=== PATIENT | female | born 1975 | race Caucasian/White ===

== ENCOUNTER → 2018-08-05 12:13 | Outpatient (CLI) | payer BC, SELFPAY ==
--- NOTE | 2018-08-05 12:17 | RAD_ITS ---
STUDY: X-RAY - LUMBAR SPINE REASON FOR EXAM: Female, 43 years old. Back pain, recently been found to have something and felt a pop TECHNIQUE: 5 view(s) of the lumbar spine were obtained. COMPARISON: None FINDINGS: Normal lumbar lordosis. There is no substantial scoliosis. There is a normal alignment of the vertebrae. Mild spondylosis at lower lumbar levels. Disc space narrowing at L4-L5 and L5-S1. There is no demonstrated fracture. There is no demonstrated spondylolysis of the pars interarticulares. The soft tissue structures are unremarkable. RAD/L/S Spine Min 4 Views IMPRESSION: 1. Degenerative disc disease L4-L5 and L5-S1. No compression fracture. Electronically Signed: Carlos Faith MD at 20:53 EDT , Service support ,
== END ==
PROVIDERS: Family Provider Family Medicine; PCP Family Medicine; Visit Provider Family Medicine
DX: M54.9 Dorsalgia, unspecified (principal)
CPT/HCPCS: 72110

== ENCOUNTER → 2019-11-19 16:02 | Outpatient (CLI) | payer BC, SELFPAY ==
[2019-11-19 09:04] VITALS: BMI 33.4
[2019-11-19 16:05] LABS: Mucous, Urine 0 SEEN /hpf (<or=2+); Red Blood Cells-Urine 0 SEEN /hpf (0-5)
[2019-11-19 16:38] LABS: Color, Urine Yellow (Yellow); Glucose, Dipstick Normal (Normal); Ketone-Dipstick Negative (Negative); Leukocyte Esterase-Dipstick 500 /ul (Negative); Nitrite-Dipstick Negative (Negative); Occult Blood-Urine 10 /ul (Negative); Protein-Dipstick Negative (Negative); Urine Bilirubin Dipstick Negative (Negative); Urine Clarity Sl. Cloudy (Clear); Urine Urobilinogen Normal (Normal)
[2019-11-19 17:08] LABS: Bacteria 2+ /hpf (None Seen); Squamous Epithelial Cells - UA 0-5 SEEN /hpf (5-10); White Blood Cells 10-25 SEEN /hpf (0-5)
== END ==
PROVIDERS: Family Provider Family Medicine; PCP Family Medicine; Referring Provider Physician Assistant Medical; Visit Provider Physician Assistant Medical
DX: M54.5 Low back pain (principal)
CPT/HCPCS: 81001; 87086; 87088

== ENCOUNTER → 2020-12-12 16:23 | Outpatient (CLI) | payer BC, SELFPAY ==
[2019-11-19 09:04] VITALS: BMI 33.4
--- NOTE | 2020-12-12 16:27 | RAD_ITS ---
STUDY: X-RAY - LUMBAR SPINE REASON FOR EXAM: Female, 45 years old. INTERMITTENT BACK PAIN, GETTING INCREASINGLY WORSE RECENTLY TECHNIQUE: 5 view(s) of the lumbar spine were obtained including oblique views. COMPARISON: None FINDINGS: Normal lumbar lordosis. There is no substantial scoliosis. There is a normal alignment of the vertebrae. Disc space narrowing and mild spondylosis at the L4-L5 and L5-S1 levels. The soft tissue structures are unremarkable. RAD/L/S Spine Min 4 Views IMPRESSION: Disc space narrowing and mild spondylosis at the L4-L5 and L5-S1 levels. Electronically Signed: Bear Lyon MD at 11:04 EST , Service support ,
== END ==
LOC: MTRAD 16:26
PROVIDERS: PCP Family Medicine; Referring Provider Family Medicine; Visit Provider Family Medicine
DX: M54.5 Low back pain (principal)
CPT/HCPCS: 72110

== ENCOUNTER → 2021-04-03 06:17 | Outpatient (CLI) | payer BC, SELFPAY ==
[2019-11-19 09:04] VITALS: BMI 33.4
--- NOTE | 2021-04-03 15:23 | NEURO ---
NCS and/or EMG Patient Report Ordering Doctor: Lang Galindo DATE OF SERVICE: 04/03/21 Jamee presents for electrodiagnostic testing of the lower limbs. She reports numbness, tingling and burning in the legs, more prominent on the right side. She has a history of back surgery in 2013. Electrodiagnostic findings: peroneal motor nerve demonstrates normal distal latency, amplitude and conduction velocity bilaterally. Normal tibial motor response bilaterally. Normal tibial and peroneal F waves. H reflex is within normal limits. Sensory responses are normal. On needle EMG, all muscles tested in the lower limbs, as well as lumbar paraspinals, showed no evidence of denervation with normal motor unit action potentials. Electrodiagnostic assessment: This is a normal electrodiagnostic study in the lower limbs. There is no electrodiagnostic evidence for lumbosacral radiculopathy or peripheral neuropathy.
== END ==
LOC: PSN 06:18
PROVIDERS: PCP Family Medicine; Referring Provider Orthopaedic Surgery; Visit Provider Orthopaedic Surgery
DX: M47.26 Other spondylosis with radiculopathy, lumbar region (principal)
CPT/HCPCS: 95886; 95911

== ENCOUNTER → 2021-10-30 10:33 | Outpatient (CLI) | payer BC, SELFPAY ==
[2021-10-30 14:02] LABS: Probe Check PASS; Specimen Processing Control PASS
== END ==
PROVIDERS: PCP Family Medicine; Referring Provider Internal Medicine Cardiovascular Disease; Visit Provider Internal Medicine Cardiovascular Disease
DX: Z03.818 Encounter for observation for suspected exposure to other biological agents ruled out (principal)
CPT/HCPCS: 87635; U0005; U0003

== ENCOUNTER 2022-04-19 05:35 | Emergency (ER) | payer OTHER, SELFPAY ==
[2022-04-19 05:35] VITALS: BP 143/82; PULSE 88; RESP 18; TEMP 36.1; O2SAT 96; BMI 34.4
--- NOTE | 2022-04-19 05:54 | EX.ED.UPPERE ---
HPI History of Present Illness Chief Complaint: Upper Extremity Injury Informant: patient Onset/Context/Timing Onset: Yesterday Context: Gradual Onset Timing: Continuous Quality of Pain: Aching Location: MCPJs left hand Current Severity: Moderate Maximum Severity: Moderate Worsened by: making a fist/movement Relieved by: nothing Associated Symptoms Associated Symptoms: Positive for Parasthesia (fingers); Negative for Weakness and Loss of Funtion Narrative Narrative: Gradual onset swelling and pain mostly around the MCPJ's of the left hand. She is right-hand dominant. No recent injury or repetitive movements she can think of. No recent IV in this arm. No history of breast cancer or other systemic disease. No fevers or chills. No recent splinter/foreign body or break in the skin on her left hand that could be a nidus for infection. [facility] Medical History Back pain HTN (hypertension) Home Medications lisinopril 5 mg PO DAILY 07/02/17 [History Last Taken 04/19/22] gabapentin 100 mg capsule 100 mg PO BID 12/04/21 [History Last Taken 04/19/22] prednisone 40 mg PO DAILY #12 tablet 04/19/22 [Rx Last Taken Unknown] Allergy/AdvReac Type Severity Reaction Status Date / Time erythromycin base Allergy Hives Verified 12/04/21 09:01 Surgical History History of back surgery History of discectomy History of knee surgery History of laminectomy History of tubal ligation Social History Smoking Status: Never smoker alcohol intake: current alcohol intake frequency: a few times a month Alcohol type: wine ROS ROS ED Constitutional Constitutional ED: Denies chills or fever(s) Musculoskeletal Musculoskeletal: Reports extremity pain; Denies neck pain Integumentary Denies Abrasions, rash or wounds Neurologic Neurologic: Reports paresthesias; Denies weakness EXAM Physical Exam Const Vital Signs: 04/19/22 05:35 Temperature 96.9 F L Temperature Source Temporal Pulse Rate 88 Respiratory Rate 18 Blood Pressure 143/82 H Blood Pressure Mean 102 Pulse Ox 96 Oxygen Delivery Method Room Air Positive well nourished and well developed General Appearance ED: well developed and NAD Neck full ROM and supple Lymph Lymphatic Narrative: No left epitrochlear lymphadenopathy. No left axillary lymphadenopathy. Back/Spine normal ROM and normal to inspection Extremity full ROM Extremity Narrative: Able to make a fist with her left hand and move all fingers/tendons without difficulty. No bony tenderness. Some mild tenderness in the soft tissues of the dorsum of the left hand MCPJ's, mostly near and around the index finger joint. No fluctuance or erythema or abscess. Patient notices warmth which I cannot objectively appreciate to the degree that she can. Full range of motion wrist, elbow, shoulder without difficulty. Neuro oriented x3 and no focal motor deficits Neuro Narrative: Subjective decrease sensation fingers 2-5 left hand. Brisk cap refill. Strong pulses 2+/4 radial. Sensorium / Orientation: alert Psych mental status grossly normal and thought process normal Skin no wounds Rashes: no rashes MDM MDM MDM Narrative Medical decision making narrative: I do not see anything here that looks like an infection. She has swelling along with painful movements of the MCP J's, the cause is unknown and I do not think doing tasks will necessarily help to elucidate the cause, and I do not think any tests are necessary to rule out an emergency here. This seems to be something inflammatory rather than infectious so I think putting her on a short course of prednisone is reasonable. She was advised that if this makes it worse to stop it and either follow-up or return to the ER, especially if she sees signs of infection which we discussed. Discharge Plan Triage Chief Complaint: Upper Extremity Injury ED Provider: Дмитрий Salas Dx/Rx/DC Orders Clinical Impression: Arthritis of hand, left Instructions: ED Arthralgia Prescriptions: New prednisone 20 MG tablet 40 mg PO DAILY Qty: 12 RF: 0 No Action gabapentin 100 mg capsule 100 mg PO BID RF: 0 lisinopril 5 MG tablet 5 mg PO DAILY RF: 0 Primary Care Provider: Enmanuel De Santiago Referrals: Enmanuel De Santiago MD [Primary Care Provider] - 3-5 Days if not improving Disposition Disposition: Home, Self Care Discharge Date/Time: 04/19/22 06:00
[2022-04-19 05:58] VITALS: BP 135/78; PULSE 80; RESP 18; O2SAT 96
[2022-04-19] MEDS: predniSONE 20 MG Tablet 40 MG PO (05:59)
== END 2022-04-19 06:00 | disposition home or self-care (01) ==
LOC: ED 06:00
PROVIDERS: Emergency Provider Emergency Medicine; PCP Family Medicine; Visit Provider Emergency Medicine
DX: M19.042 Primary osteoarthritis, left hand (principal); I10 Essential (primary) hypertension; Z79.899 Other long term (current) drug therapy
CPT/HCPCS: 99283

== ENCOUNTER → 2022-08-14 | Outpatient (CLI) | payer OTHER, SELFPAY ==
[2022-08-14 14:10] LABS: Anion Gap 6 (5-15); BUN 12 mg/dL (7-18); BUN/Creat Ratio 17.2 RATIO (10-20); Calcium,Total 9.4 mg/dL (8.5-10.1); Chloride 108 mmol/L (98-107); Cholesterol 195 mg/dL (200); EST Glomerular Filtration Rate 96 mL/min (>60); Est Glom Filt Rate - Afr Amer 116 mL/min (>60); Glucose 104 mg/dL (74-106); High Density Lipoprotein 45 mg/dL; Potassium 3.9 mmol/L (3.5-5.1); Sodium Level 140 mmol/L (136-145); Thyroid Stim Hormone (TSH) 2.54 uIU/mL (0.358-3.74); Triglycerides 106 mg/dL; Very Low Density Lipoprotein 21 mg/dL (5-40)
== END | disposition home or self-care (01) ==
LOC: MFPLAB 08:42
PROVIDERS: PCP Family Medicine; Referring Provider Family Medicine; Visit Provider Family Medicine
DX: Z00.00 Encounter for general adult medical examination without abnormal findings (principal)
CPT/HCPCS: 36415; 80048; 80061; 84443

== ENCOUNTER → 2022-12-29 | Outpatient (CLI) | payer OTHER, SELFPAY ==
--- NOTE | 2022-12-29 17:12 | RAD_ITS ---
EXAM: XR RIGHT ELBOW COMPLETE, 3 OR MORE VIEWS CLINICAL INDICATION: PAIN TECHNIQUE: Frontal, lateral and oblique views of the right elbow. This report was created using [employer] report generation technology. COMPARISON: None. FINDINGS: BONES/JOINTS: Unremarkable. There is no displacement of the anterior or posterior fat pads. No acute fracture. No subluxation. Normal alignment. Preservation of the joint space. No destructive or sclerotic lesions. SOFT TISSUES: Unremarkable. No soft tissue swelling or gas. No radiopaque foreign body. RAD/Elbow min 3 Views IMPRESSION: Negative right elbow. Electronically Signed: Yakov Wing MD at 23:33 EST ,
== END | disposition home or self-care (01) ==
LOC: MTRAD 17:11
PROVIDERS: PCP Family Medicine; Referring Provider Family Medicine; Visit Provider Family Medicine
DX: M25.521 Pain in right elbow (principal); M25.522 Pain in left elbow
CPT/HCPCS: 73080

== ENCOUNTER → 2022-12-30 | Outpatient (CLI) | payer OTHER, SELFPAY ==
[2022-12-30 12:27] LABS: Absolute Lymphocyte Count 2.13 X10^3/uL (0.83-4.51); Absolute Neutrophil Count 3.5 X10^3/uL (2.0-7.7); Basophil# 0.07 X10^3/uL; Eosinophil# 0.24 X10^3/uL; Eosinophils% 3.6 % (0-5); Hematocrit 40.1 % (37-47); Hemoglobin 13.5 g/dL (12.0-15.0); Lymphocyte # 2.13 X10^3/ul (0.83-4.51); Lymphocyte % 31.8 % (19-41); Mean Corp Hgb Conc 33.7 g/dL (32-36); Mean Corpuscular Hgb 30.5 pg (27.0-32.0); Mean Corpuscular Volume 90.7 fL (81-99); Mean Platelet Vol. 10.3 fl (6.2-12.0); Monocyte# 0.71 X10^3/uL; Monocyte% 10.6 % (0-10); NRBC Flagged by Analyzer 0 % (0-5); Neutrophil # 3.53 X10^3/uL (2.7-7.7); Neutrophil % 52.9 % (47-70); Platelet Count 302 K/mm3 (150-450); RBC Distribution Width CV 11.7 % (11.6-14.6); RBC Distribution Width SD 38.5 fl (35.1-43.9); Red Blood Count 4.42 M/mm3 (4.2-5.4); White Blood Count 6.7 K/mm3 (4.4-11.0)
[2022-12-30 12:29] LABS: Erythrocyte Sedimentation Rate 11 mm/hr (0-30)
[2022-12-30 12:47] LABS: CRP < 2.90 mg/L (0.0-3.0)
[2023-01-02 19:04] LABS: ANTINUCLEAR ANTIBODIES DIRECT Negative (Negative)
== END | disposition home or self-care (01) ==
LOC: MFPLAB 10:40
PROVIDERS: PCP Family Medicine; Visit Provider Family Medicine
DX: M25.521 Pain in right elbow (principal)
CPT/HCPCS: 36415; 85025; 85652; 86038; 86140

== ENCOUNTER 2023-01-08 09:49 | Outpatient (RCR) | payer OTHER, SELFPAY ==
--- NOTE | 2023-01-08 14:52 | HP.PTEVAL_ITS ---
Patient's Visit Information ROMY LIANG is a 47 year old F referred to Physical Therapy by Dr. Stefan Celeste MD with a diagnosis of Bilateral Elbow Pain. Date of Evaluation: 01/08/23 Physical Therapist: Enedina Hull DPT - Visit Plan Frequency: 2x /Week Duration: 4 Weeks Plan: Return to MD for further evaluation of possible cervical spine involvement. Will follow up with PT after re-evaluation by PT - Subjective Patient reports bilateral elbow pain since June- she saw the MD in August- she put her on anti-inflam which did not help. The pain is along the medial elbow- the pain is always there its just sometimes worse than others. She is already on gabapentin for her back- and has a PT referral for that too. She is contently moving her elbows. 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 Eases: nothing- she has tried multiple braces- she has not had any x-rays of her cervical spine. She has had tests for RA and those all came back negative. Pain does radiate to her shoulder and she does have some N/T in her hands bilateral. She likes to read a book at night and she has pain in the elbows. Worst: 10/10 which was Thursday night- she did nothing out of the ordinary- both the same- if she is a 10/10 in one its in both. Her neck is just really stiff and she gets FORBES- every day she wakes up with one. Sleep: disturbed- she is up 2- 3x a night for restroom and pain. She is a back/side sleeper- she has an ortho bed which she does zero gravity- she is using a memory foam gel pillow. She has DDD in her lumbar spine, spinal stenosis L1-L5. She has surgery in 2013- left LE nerve damage. She has had a recent MRI- [facility] (Dr. Cifuentes). Decreased rivet spinner strength. Right hand dominate. PMHx: back surgery, tubal ligation, artho knee surgery, appendectomy Meds: Lisinopril and Gabapentin - Objective Posture: FH, RS- can correct but does not maintain. Gait: no deviation noted. Palpation: tender along cervical spine paraspinals, infraspinatus, medial border of the scapula, upper trap to the AC joint, and medial epicondyle. ROM: Cervical: WFL but does have radiating s/s with cervical flexion- increased N/T in bilateral UE and elbow pain. Coming back to neutral all neuro signs abolish. UE: WFL in all planes. Strength: Scap: poor, Shoulder: 4/5, Elbow: 4/5 with pain, Wrist: 4/5 with pain, Benefits Coordinator: Left: 40/60 Right: 60/70. Sensation: WNL to gross touch bilateral. Special Test: neural tension: positive with radial, medial and ulnar with increased pain down bilateral UE and elbow pain. - Special Tests C/S Radiculapathy - Left Upper limb tension test: Positive C/S Radiculapathy - Right Upper limb tension test: Positive C/S Radiculapathy - Left Spurlings: Positive C/S Radiculapathy - Right Spurlings: Positive - Balance/Special Test Scores Quick DASH Score: 36.3625 - Goals Goal 1:: Patient will be I with HEP and progression Goal Time Frame: 4-6 Weeks - Rehabilitation Potential Physical Therapy Diagnosis: Patient presents with bilateral elbow pain that is exacerbated by neural tension tests and cervical flexion. - Anticipated Interventions Patient/Client Instruction: Educate patient on: Benefits of Fitness Program Therapeutic Exercise to Include: Strength training, Body mechanics, Postural training, Flexibilty training, Gait and locomotor training, Neuromotor development, Passive ROM, Active ROM, Dynamic Lumbar Stabilization, Scapular Strength/Stabilization For the Purpose of:: To improve muscle performance and motor function TENS: Yes Cryotherapy (ice pack, ice massage): Yes Thermo therapy (hot pack): Yes Ultrasound (thermal/non thermal): Yes Thank you for the opportunity to evaluate your patient. For Medicare and Medicare HMO plans, please review the plan of care and approve it. It will need to be FAXED BACK to us at [phone] for Medicare purposes. For Medicare only, by signing this I certify the plan of care. Please let me know if there are questions or concerns regarding this plan of care. Physician Signature: Date:
--- NOTE | 2023-02-09 08:11 | HP.PTDCSUM ---
It has been my pleasure to treat ROMY LIANG referred by Dr. Stefan Celeste MD, with the diagnosis of Bilateral Elbow Pain for a total of 1 visit(s). Discharge Date: Please see the following information for a summary of their discharge status. Goal 1:: Patient will be I with HEP and progression Plan: Return to MD for further evaluation of possible cervical spine involvement. Will follow up with PT after re-evaluation by PT If there are questions or concerns regarding this patient's physical therapy, please feel free to call me at [phone]. Thank you for the referral of this patient. Sincerely, Enedina Hull, BENT Balance/Gait/Functional tests - Balance/Special Test Scores Quick DASH Score: 36.3626
== END 2023-01-08 19:00 | disposition home or self-care (01) ==
LOC: PT 09:49
PROVIDERS: PCP Family Medicine; Referring Provider Family Medicine; Visit Provider Family Medicine
DX: M25.521 Pain in right elbow (principal); M25.522 Pain in left elbow
CPT/HCPCS: 97162

== ENCOUNTER 2023-10-05 07:46 | Emergency (ER) | payer OTHER, SELFPAY ==
[2023-10-05 07:47] VITALS: BP 158/91; PULSE 86; RESP 15; TEMP 36; O2SAT 100; BMI 32.3
--- NOTE | 2023-10-05 08:20 | EDS_ITS ---
HPI History of Present Illness Chief Complaint: Dizziness Narrative Narrative: 48-year-old female presenting with dizziness/lightheadedness. She states it started last evening and went away. Patient states she does take lisinopril for high blood pressure and notes her blood pressures have not been significantly high. Patient states her symptoms went away last evening but returned this morning when she was at work. She describes it as vertiginous when she closes her eyes. When she walks she feels a little off balance. She feels like she has tingling around her lips. No history of vertigo. No headache. No visual complaints. No numbness or tingling elsewhere. Patient able to ambulate although she feels unsteady was able to make it into the emergency room steady gait. [facility] Medical History Back pain HTN (hypertension) Home Medications lisinopril 5 mg tablet 5 mg PO DAILY blood pressure 07/02/17 [History Last Taken 04/19/22] gabapentin 100 mg capsule 100 mg PO BID 12/04/21 [History Last Taken 04/19/22] prednisone 20 mg tablet 40 mg (2 x 20 mg) PO DAILY #12 TABLETS 04/19/22 [Rx Last Taken Unknown] cyclobenzaprine 10 mg tablet 10 mg PO TID PRN Muscle Spasm #20 TABLETS 10/05/23 [Rx Last Taken Unknown] meclizine 25 mg tablet 25 mg PO TID PRN dizziness #30 tabs 10/05/23 [Rx Last Taken Unknown] Allergy/AdvReac Type Severity Reaction Status Date / Time erythromycin base Allergy Hives Verified 10/05/23 08:13 Surgical History History of back surgery History of discectomy History of knee surgery History of laminectomy History of tubal ligation Social History Smoking Status: Never smoker alcohol intake: current alcohol intake frequency: a few times a month Alcohol type: wine ROS ROS ED Constitutional Constitutional ED: Denies chills, fever(s) or sweats Eyes Eyes: Reports other Details: Vertiginous dizziness ; Denies blurry vision or change in vision ENT ENT ED: Denies ear pain or sore throat Cardiovascular Cardiovascular: Denies chest pain, palpitations or racing heartbeat Respiratory/Chest Respiratory/Chest: Denies cough, dyspnea or sputum Gastrointestinal Gastrointestinal: Denies abdominal pain, constipation, diarrhea, nausea or vomiting Genitourinary Genitourinary ED: Denies dysuria, hematuria or urinary frequency Musculoskeletal Musculoskeletal: Denies arthralgias, myalgias or neck pain Integumentary Denies abscess, Abrasions or rash Neurologic Neurologic: Denies headache(s), paresthesias or weakness Psychiatric Psychiatric: Denies anxiety, depression, suicidal ideation or suicidal thoughts Endocrine Endocrinology: Denies polydipsia or polyuria EXAM Physical Exam Const Vital Signs: 10/05/23 07:47 10/05/23 09:40 10/05/23 09:45 Temperature 96.8 F L Temperature Source Temporal Pulse Rate 86 79 Respiratory Rate 15 18 Respiratory Effort Normal Non-Labored Respiratory Pattern Normal Blood Pressure 158/91 H 136/87 H Blood Pressure Mean 113 103 Pulse Ox 100 99 Oxygen Delivery Method Room Air Room Air Positive well nourished General Appearance ED: NAD HEENT Reports moist mucous membranes Eyes PERRL and EOMs intact bilaterally Eyes Narrative: Nystagmus noted with [place]-Hallpike. Neck no lymphadenopathy Resp normal respiratory effort Cardio regular rate and regular rhythm Neuro oriented x3, CN's II-XII intact bilaterally and no sensory deficits noted Neuro Narrative: No focal neurologic deficits or lateralizing signs or symptoms Sensorium / Orientation: alert Psych mental status grossly normal Skin no rashes or lesions noted MDM MDM MDM Narrative Medical decision making narrative: Patient presenting with lightheaded/dizziness. She has reproducible dizziness on exam and has some nystagmus noted with [place]-Hallpike. Patient medicated with Phenergan and meclizine. On reevaluation she felt much better she was able to ambulate stable gait she sitting in a chair and is comfortable. She states her symptoms have resolved. She also states she is having some lumbar back pain which is not new. She states she is out of cyclobenzaprine and request a prescription for this. This was provided. Patient discharged home in stable condition. Impression: 1. Vertigo 2. Lumbar strain Discharge Plan Triage Chief Complaint: Dizziness ED Provider: Tyree Boyce Dx/Rx/DC Orders Instructions: ED Back Pain (Acute or Chronic), ED BPV Vertigo Prescriptions: New meclizine 25 mg tablet 25 mg PO TID PRN (Reason: dizziness) Qty: 30 0RF cyclobenzaprine 10 mg tablet 10 mg PO TID PRN (Reason: Muscle Spasm) Qty: 20 0RF No Action gabapentin 100 mg capsule 100 mg PO BID Hold Instructions: Pt has been DC'd Patient Comments: Take 1 Capsule by mouth two times daily lisinopril 5 MG tablet 5 mg PO DAILY prednisone 20 MG tablet 40 mg PO DAILY Qty: 12 0RF Hold Instructions: Pt has been DC'd Primary Care Provider: Enmanuel De Santiago Referrals: Dennis Brower MD [Med Staff - Active Staff] - 3-5 Days Enmanuel De Santiago MD [Primary Care Provider] - Disposition Disposition: Home, Self Care Discharge Date/Time: 10/05/23 10:22
[2023-10-05] MEDS: proMETHazine 25 MG/ML Syringe 12.5 MG IM (08:48)
[2023-10-05] MEDS: Meclizine HCl 25 MG Tablet PO (08:48)
[2023-10-05 09:45] VITALS: BP 136/87; PULSE 79; RESP 18; O2SAT 99
== END 2023-10-05 10:22 | disposition home or self-care (01) ==
PROVIDERS: Emergency Provider Student in an Organized Health Care Education/Training Program; PCP Family Medicine; Visit Provider Student in an Organized Health Care Education/Training Program
DX: R42 Dizziness and giddiness (principal); S39.012A Strain of muscle, fascia and tendon of lower back, initial encounter; X58.XXXA Exposure to other specified factors, initial encounter; I10 Essential (primary) hypertension; Z79.899 Other long term (current) drug therapy
CPT/HCPCS: 96372; 99282

== ENCOUNTER → 2023-12-04 | Outpatient (CLI) | payer OTHER, SELFPAY ==
[2023-12-04 15:58] LABS: Anion Gap 6 (5-15); BUN 11 mg/dL (7-18); BUN/Creat Ratio 15.3 RATIO (10-20); Calcium,Total 9.2 mg/dL (8.5-10.1); Chloride 109 mmol/L (98-107); Cholesterol 204 mg/dL (200); Creatinine, Serum 0.72 mg/dL (0.55-1.02); EST Glomerular Filtration Rate 92 mL/min (>60); Est Glom Filt Rate - Afr Amer 112 mL/min (>60); Glucose 87 mg/dL (74-106); High Density Lipoprotein 47 mg/dL; Potassium 3.6 mmol/L (3.5-5.1); Sodium Level 139 mmol/L (136-145); Triglycerides 116 mg/dL; Very Low Density Lipoprotein 23 mg/dL (5-40)
[2023-12-04 16:13] LABS: Vitamin D,25 Hydroxy 42.1 ng/mL
== END | disposition home or self-care (01) ==
LOC: MFPLAB 14:12
PROVIDERS: PCP Family Medicine; Visit Provider Family Medicine
DX: Z00.00 Encounter for general adult medical examination without abnormal findings (principal)
CPT/HCPCS: 36415; 80048; 80061; 82306

== ENCOUNTER 2024-03-03 08:57 | Day surgery (SDC) | payer OTHER, SELFPAY ==
[2024-03-03] VITALS (7 sets, daily range): BP systolic 115–132; BP diastolic 63–88; PULSE 57–72; RESP 16–18; TEMP 36.5–36.6; O2SAT 98–100; BMI 33.5
--- NOTE | 2024-03-03 | COLBX_PTH ---
PATIENT: ROMY LIANG LOC: EN U#:[id number] AGE/SX: 48/F ROOM: RE03/03/[address]: Dr. Sonido Guzman DO : 1975 BED: DIS: 03/03/2024 SPEC #: [id number] RECD: 03/03/24 12:50 STATUS: SANDEEP ONESIMO #: [id number] ARACELY: 03/03/24 00:[address]: Sonido Guzman DEPT: SURGICAL PATHOLOGY RECD BY: Aurelio Wharton ENTERED: 03/03/24 12:51 SP TYPE: COLON BX OTHR DR: Dr. Enmanuel De Santiago MD Tissues: COLON BIOPSY Procedures: Surgery Specimen Level IV HEADER OPERATION: Colonoscopy with polypectomy- open access PRE-OP DIAGNOSIS: Encounter for screening for malignant neoplasm of colon TISSUE SUBMITTED: Hepatic flexure polyp MICROSCOPIC DIAGNOSIS Colonic polyp at hepatic flexure, biopsy: Tubular adenoma. AM/mr 03/04/24 MICROSCOPIC DESCRIPTION Slides are reviewed. GROSS DESCRIPTION Received in fixative is one container labeled with the patient's name and designated Hepatic flexure polyp. The specimen consists of one irregular fragment of light garnett soft tissue that measures 0.3 x 0.3 x 0.1 cm. The specimen is totally submitted in one cassette. GAVI/ 03/03/2024 TC:5 CPT:04073
[2024-03-03] MEDS: Lactated Ringers 1,000 ML 15 ML IV (09:30)
--- NOTE | 2024-03-03 10:44 | PCM.HP.STD ---
[facility] - General General Date of Admission: 03/03/24 Date of Service: 03/03/24 Chief Complaint: Screening colonoscopy [facility] Narrative ROMY LIANG, is a 48 F who presents today for screening colonoscopy. She never had a colonoscopy in the past. Past medical history is only positive for vertigo and mild hypertension. She denies any chest pain, shortness of breath, vomiting or diarrhea. Overall she is in very good health. [facility] Medical History (Updated 02/29/24 @ 09:55 by Zaida Norton) Alcohol use Arthritis Back pain Heartburn HTN (hypertension) Non-smoker Vertigo Wears contact lenses Home Medications lisinopril 5 mg tablet 5 mg PO DAILY blood pressure 07/02/17 [History Last Taken 03/03/24 05:30] cyclobenzaprine 10 mg tablet 10 mg PO TID PRN Muscle Spasm #20 TABLETS 10/05/23 [Rx Last Taken Unknown] meclizine 25 mg tablet 25 mg PO TID PRN dizziness #30 tabs 10/05/23 [Rx Last Taken Unknown] multivitamin 1 tab PO DAILY 01/25/24 [History Last Taken 03/02/24] Allergy/AdvReac Type Severity Reaction Status Date / Time erythromycin base Allergy Hives Verified 03/03/24 09:34 Family History (Updated 01/25/24 @ 14:17 by Sammie Masterson) Uncle Colon cancer Father Colon polyps Surgical History (Updated 02/29/24 @ 09:55 by Zaida Norton) History of knee surgery History of laminectomy History of tubal ligation Social History (Updated 01/25/24 @ 14:17 by Sammie Masterson) household members: spouse current occupational status: employed Smoking Status: Never smoker alcohol intake: current alcohol intake frequency: a few times a month Alcohol type: wine substance use type: does not use ROS Review of Systems ROS Unobtainable: other Constitutional Constitutional: Denies fatigue, fever(s), poor appetite, weight gain or weight loss ENT HEENT: Denies mouth lesions Cardiovascular Cardiovascular: Denies abdominal bloating, abdominal edema or abdominal pain Respiratory/Chest Respiratory/Chest: Denies change in mental status, change in phlegm color, chest congestion or chest tightness Gastrointestinal Gastrointestinal: Denies belching, bloating, change in bowel habits, change in stool character, chewing difficulty, coffee ground emesis, constipation, cramping, diarrhea, dyspepsia, dysphagia, early satiety, excessive flatus, fecal incontinence, heartburn, hematemesis, hematochezia, hemorrhoids, loose stools, melena, nausea, odynophagia, rectal bleeding, tenesmus, vomiting or weight changes Genitourinary Genitourinary: Denies abdominal discomfort, burning urination or itching Musculoskeletal Musculoskeletal: Reports as per HPI; Denies muscle weakness or myalgias Integumentary Integumentary: Denies jaundice Neurologic Neurologic: Denies lack of coordination or weakness Psychiatric Psychiatric: Denies confusion, depression, memory loss, mood swings, paranoia or suicidal ideation Endocrine Endocrinology: Denies systems reviewed and no addt'l complaints, except as documented Hematologic/Lymphatic Hematologic/Lymphatic: Denies anemia, easy bleeding, easy bruising or lymphadenopathy Allergic/Immunologic Allergic/Immunologic: Denies systems reviewed and no addt'l complaints, except as documented Vital Signs Vital Signs Vital Signs: 03/03/24 09:35 03/03/24 09:35 Temperature 97.8 F Temperature Source Temporal Pulse Rate 69 Respiratory Rate 18 Respiratory Pattern Normal Blood Pressure 132/88 H Blood Pressure Mean 102 Blood Pressure Source Monitor Blood Pressure Position Sitting Blood Pressure Location Left Arm Pulse Ox 99 Oxygen Delivery Method Room Air Weight Weight: 233 lb 11.04 oz Body Mass Index (BMI) 33.5 Physical Exam Const alert General Appearance: cooperative Orientation / Consciousness: oriented to person HEENT hearing grossly normal bilaterally Head and Scalp: normal to inspection Face and Sinus: face symmetric Nose: external nose normal Mouth: oral and palatal mucosa normal Eyes conjunctivae normal General Eye: normal appearance of both eyes Neck full ROM General: normal visual inspection Lymph Lymphatic: no lymphadenopathy noted Chest inspection of chest normal and palpation of chest normal Chest: symmetrical chest wall rise Resp normal respiratory effort Effort and Inspection: able to speak in complete sentences Cardio regular rate GI non-distended Percussion: normal to percussion Rectal Exam: deferred Neuro Speech: speech normal Gait (Neuro): normal gait Assessment & Plan Assessment/Plan (1) Encounter for screening for malignant neoplasm of colon: PLAN: She was explained alternatives, benefits, risk including not withstanding bleeding, infection, sepsis, perforation, need for emergent surgery and . She will have an ASA of 2.
--- NOTE | 2024-03-03 11:12 | OP.CCLET_ITS ---
03/03/2024 Enmanuel De Santiago MD [address] [id number] Re : Colonoscopy procedure for Jamee Hernandez Dear Dr. De Santiago This procedure was performed on February. My impressions and recommendations are as follows: Impressions : - One 5 mm polyp at the hepatic flexure, removed with a jumbo cold forceps. Resected and retrieved. - Diverticulosis in the recto-sigmoid colon and in the sigmoid colon. - The examination was otherwise normal on direct and retroflexion views. Recommendations : - Discharge patient to home. - Resume previous diet. - Continue present medications. - Await pathology results. - Repeat colonoscopy in 5 years for surveillance. My findings are described in the full procedure note, which is enclosed. If I can be of further assistance, please feel free to contact me at . Sincerely, Sonido Friend, 03/03/2024 11:11:38 AM This report has been signed electronically.
--- NOTE | 2024-03-03 11:12 | OP.COLON_ITS ---
Patient Name: Jamee Hernandez Procedure Date: 03/03/2024 10:48 AM Date of : 1975 Age: 48 Procedure: Colonoscopy Indications: Screening for colorectal malignant neoplasm Providers: Sonido Guzman DO Referring MD: Sonido Guzman DO Medicines: Monitored Anesthesia Care Patient Profile: This is a 48 year old female. Refer to note in patient chart for documentation of history and physical. Last Colonoscopy: none. The patient's first colonoscopy is today. Complications: No immediate complications. Procedure: Pre-Anesthesia Assessment: - Prior to the procedure, a History and Physical was performed, and patient medications and allergies were reviewed. The patient is competent. The risks and benefits of the procedure and the sedation options and risks were discussed with the patient. All questions were answered and informed consent was obtained. Patient identification and proposed procedure were verified by the physician. Mental Status Examination: normal. Prophylactic Antibiotics: The patient does not require prophylactic antibiotics. Prior Anticoagulants: The patient has taken no anticoagulant or antiplatelet agents. ASA Grade Assessment: II - A patient with mild systemic disease. After reviewing the risks and benefits, the patient was deemed in satisfactory condition to undergo the procedure. The anesthesia plan was to use monitored anesthesia care (MAC). Immediately prior to administration of medications, the patient was re-assessed for adequacy to receive sedatives. The heart rate, respiratory rate, oxygen saturations, blood pressure, adequacy of pulmonary ventilation, and response to care were monitored throughout the procedure. The physical status of the patient was re-assessed after the procedure. After I obtained informed consent, the scope was passed under direct vision. Throughout the procedure, the patient's blood pressure, pulse, and oxygen saturations were monitored continuously. The Colonoscope was introduced through the anus and advanced to the cecum, identified by appendiceal orifice and ileocecal valve. The colonoscopy was performed without difficulty. The patient tolerated the procedure well. The quality of the bowel preparation was adequate. The ileocecal valve, appendiceal orifice, and rectum were photographed. Scope In: 10:53:16 AM Scope Withdrawal Time 0 hours 7 minutes 59 seconds Scope Out: 11:05:54 AM Total Procedure Duration Time 0 hours 12 minutes 38 seconds Findings: The perianal and digital rectal examinations were normal. A 5 mm polyp was found in the hepatic flexure. The polyp was sessile. The polyp was removed with a jumbo cold forceps. Resection and retrieval were complete. Verification of patient identification for the specimen was done. Estimated blood loss was minimal. Multiple small-mouthed diverticula were found in the recto-sigmoid colon and sigmoid colon. The exam was otherwise without abnormality on direct and retroflexion views. Impression: - One 5 mm polyp at the hepatic flexure, removed with a jumbo cold forceps. Resected and retrieved. - Diverticulosis in the recto-sigmoid colon and in the sigmoid colon. - The examination was otherwise normal on direct and retroflexion views. Recommendation: - Discharge patient to home. - Resume previous diet. - Continue present medications. - Await pathology results. - Repeat colonoscopy in 5 years for surveillance. Procedure Code(s): --- Professional --- 00933, Colonoscopy, flexible; with biopsy, single or multiple CPT copyright 2021 [employer]. All rights reserved. The codes documented in this report are preliminary and upon cooker operator review may be revised to meet current compliance requirements. Sonido Guzman DO 03/03/2024 11:11:38 AM This report has been signed electronically. Number of Addenda: 0 Note Initiated On: 03/03/2024 10:48 AM
== END 2024-03-03 12:02 | disposition home or self-care (01) ==
LOC: EN 08:59 → AC 09:00
PROVIDERS: PCP Family Medicine; Referring Provider Internal Medicine Gastroenterology; Visit Provider Internal Medicine Gastroenterology
PROC: 0DJD8ZZ Inspection of Lower Intestinal Tract, Via Natural or Artificial Opening Endoscopic (ICD-10-PCS; CPT 45378; principal; 2024-03-03 10:25)
DX: Z12.11 Encounter for screening for malignant neoplasm of colon (principal); K57.30 Diverticulosis of large intestine without perforation or abscess without bleeding; D12.3 Benign neoplasm of transverse colon; I10 Essential (primary) hypertension; Z79.899 Other long term (current) drug therapy
CPT/HCPCS: 45380; 88305; J7120; J2405

== ENCOUNTER → 2025-03-24 | Outpatient (CLI) | payer OTHER, SELFPAY ==
[2025-03-24 11:08] LABS: Anion Gap 11 (5-15); BUN 12 mg/dL (4-19); Calcium,Total 9.2 mg/dL (7.6-11.0); Chloride 105 mmol/L (98-108); Cholesterol 174 mg/dL (<=200); Creatinine, Serum 0.64 mg/dL (0.70-1.20); EST Glomerular Filtration Rate 109 (>60); Glucose 97 mg/dL (70-99); High Density Lipoprotein 48 mg/dL; Low Density Lipoprotein Calc. 113 mg/dL; Sodium Level 138 mmol/L (133-145); Triglycerides 65 mg/dL; Very Low Density Lipoprotein 13 mg/dL (5-40); Vitamin D,25 Hydroxy 29.6 ng/mL (30-100); cholesterol:hdl ratio screen 3.66
[2025-03-25 07:07] LABS: Rubeola IgG Ab < 13.5 AU/mL (Immune >16.4)
== END | disposition home or self-care (01) ==
LOC: MFPLAB 08:26
PROVIDERS: PCP Family Medicine; Referring Provider Family Medicine; Visit Provider Family Medicine
DX: Z01.84 Encounter for antibody response examination (principal)
CPT/HCPCS: 36415; 80048; 80061; 82306; 86765